=== PATIENT | female | born 1975 | race Caucasian/White ===

== ENCOUNTER 2019-11-27 16:15 | Emergency (ER) | payer OTHER, SELFPAY ==
[2019-11-27 16:46] VITALS: BP 152/90; PULSE 73; RESP 20; TEMP 37; O2SAT 97
--- NOTE | 2019-11-27 17:24 | ED.DENTAL ---
HPI - Dental/Oral General Chief complaint: Dental/Oral Stated complaint: Facial Swelling Time Seen by Provider: 11/27/19 17:19 Source: patient and RN notes reviewed Mode of arrival: ambulatory Limitations: no limitations History of Present Illness HPI Narrative: Patient presents today complaining of swelling to her left cheek x3 days, and swelling and pain to her left anterior upper gumline X5 days.She has had all the teeth in the upper arch pulled in 2017. [facility] and is on their wait list currently. No recent antibiotic use. She currently rates her pain 10/10. Denies any shortness of breath or difficulty swallowing. She has been taking ibuprofen at home for symptoms. Related Data Home Medications Medication Instructions Recorded Confirmed buspirone 15 mg PO BID 11/27/19 11/27/19 cholecalciferol (vitamin D3) 4,000 unit PO DAILY 11/27/19 11/27/19 [Vitamin D3] cyclobenzaprine 10 mg PO HS PRN 11/27/19 11/27/19 diclofenac sodium 75 mg PO BID PRN 11/27/19 11/27/19 pregabalin [Lyrica] 200 mg PO BID 11/27/19 11/27/19 triamterene-hydrochlorothiazid 1 cap PO DAILY 11/27/19 11/27/19 Allergies Allergy/AdvReac Type Severity Reaction Status Date / Time No Known Allergies Allergy Verified 11/27/19 17:00 Review of Systems Review of Systems: Narrative: CONSTITUTIONAL: Denies body aches, fever, chills, or sweats. EYES: Denies visual changes, redness, or discharge. ENT: Denies rhinorrhea, congestion, sore throat, or otalgia.+Gum swelling and pain, Facial swelling CARDIOVASCULAR: Denies chest pain, palpitations, or edema. RESPIRATORY: Denies cough or dyspnea. GASTROINTESTINAL: Denies abdominal pain, nausea, vomiting, or diarrhea. GENITOURINARY: Denies dysuria or hematuria. SKIN: Denies rash, itching, or wounds. MUSCULOSKELETAL: Denies back pain, joint pain, or myalgia. NEUROLOGIC: Denies headache, numbness, tingling, or weakness. PSYCH: Denies depression or anxiety. PMFSH Comments At time of signature, I have reviewed and agree with nursing past medical, surgical, social and family history unless otherwise noted. Please see nursing chart for further information. There is no relevant family history pertinent to the presenting complaint Exam Narrative: Exam Narrative: GENERAL: Well-appearing, well-nourished, and in no acute distress. HEAD: Normocephalic, atraumatic. EYES: EOMI. No redness or drainage. Conjunctivae normal. ENT: Mucous membranes pink and moist. Nares clear. No rhinorrhea. Throat normal. Uvula midline.Mild swelling to the left cheek, just lateral to the nose with mild erythema. 1 cm round blood-filled blister to the left upper gumline with swelling to the gumline as well. NECK: Normal AROM. Supple. No lymphadenopathy. CHEST: No respiratory distress. Clear to auscultation. HEART: Regular rate and rhythm. No murmur appreciated. Normal peripheral pulses. EXTREMITIES: Normal range of motion. No edema. SKIN: Warm, dry, no rash. NEURO: No focal deficits. Alert and oriented x3. Gait steady. PSYCH: Normal affect. No signs of depression or anxiety. Course Vital Signs Vital signs: Vital Signs Temperature 98.6 F 11/27/19 16:46 Pulse Rate 73 11/27/19 16:46 Respiratory Rate 11/27/19 16:46 Blood Pressure 152/90 H 11/27/19 16:46 Pulse Oximetry 97 11/27/19 16:46 Temperature 98.6 F 11/27/19 16:46 Pulse Rate 73 11/27/19 16:46 Respiratory Rate 20 11/27/19 16:46 Blood Pressure 152/90 H 11/27/19 16:46 Pulse Oximetry 97 11/27/19 16:46 Reviewed. Pt has been instructed to follow up with her PCP regarding her elevated blood pressure today. MDM - Dental/Oral Differential Diagnosis Differential diagnosis: Likely gingival abscess and dental abscess Critical Care Time Critical Care Time Critical Care Time: No Discharge Plan Discharge Clinical Impression: Abscess of upper gingiva Patient Disposition: Home, Self-Care Condition: Stable Instructio
== END 2019-11-27 17:30 | disposition home or self-care (01) ==
PROVIDERS: Emergency Provider Nurse Practitioner
DX: K05.319 Chronic periodontitis, localized, unspecified severity (principal); F41.9 Anxiety disorder, unspecified; F32.9 Major depressive disorder, single episode, unspecified
CPT/HCPCS: 99213; G0463

== ENCOUNTER 2023-09-06 13:44 | Emergency (ER) | payer MEDICAID, SELFPAY ==
[2023-09-06 13:50] VITALS: BP 185/90; PULSE 66; RESP 18; TEMP 36.3; O2SAT 98
--- NOTE | 2023-09-06 13:56 | ED.GENADULT ---
HPI - General Adult General Chief complaint: Dental/Oral Stated complaint: abcess tooth Source: patient, RN notes reviewed and old records reviewed Mode of arrival: ambulatory Limitations: no limitations History of Present Illness HPI narrative: 48-year-old female presents to [facility] with complaint of facial swelling, with dental/ mouth pain this started 3 days ago. Patient states her nose has dental issues in that area, patient states has dental appointment in 1 month MD complaint: dental swelling Onset (ago): day(s) ( 3) Related Data Home Medications Medication Instructions Recorded Confirmed buspirone 30 mg tablet 30 mg PO BID 09/06/23 09/06/23 fluoxetine 40 mg capsule 40 mg PO BID 09/06/23 09/06/23 ziprasidone HCl 60 mg capsule 60 mg PO BID 09/06/23 09/06/23 Allergies Allergy/AdvReac Type Severity Reaction Status Date / Time No Known Allergies Allergy Verified 09/06/23 14:00 Review of Systems Review of Systems: All systems reviewed & are unremarkable except as noted in HPI and below Constitutional: Constitutional: Reports no additional constitutional complaints Eyes: Eyes: Reports no additional eye complaints ENT: Reports as per HPI, Reports facial pain and Reports other ( right facial swelling, with ground pain, gum swelling) Cardiovascular: Cardiovascular: Reports no additional cardiovascular complaints Respiratory: Respiratory: Reports no additional respiratory complaints Neurologic: Reports system reviewed and no additional complaints, except as documented PMFSH Comments At the time of my signature, I reviewed and agree with the nursing past medical, surgical, social, and family history. There is no relevant family history pertinent to the patient complaint. Exam Const: General: cooperative, healthy appearing, no acute distress and well nourished Nutritional Appearance: well nourished Orientation/consciousness: patient oriented x3 Limitations: no limitations HENMT: Head: normal to inspection and normocephalic Ears: external ears normal, TM's normal bilaterally, mastoids normal and Abnormal EAC present Face/Nose/Sinus: normal facial exam Face and sinus: normal facial exam Face images: 1. swelling Mouth: Yes Normal oral and palatal mucosa present, Yes oropharynx normal and Yes moist mucous membranes Teeth and gingiva: abnormal tooth and associated gingiva, caries, dentures and poor dentition Teeth image: 1. patient with broken tooth noted,, redness and swelling Throat: posterior oropharynx normal, tonsils normal, uvula midline and no uvular edema Eyes: General: appearance normal, both eyes and all related structures Sclera: sclerae normal Pupils: Equal, round and reactive pupils present Resp: Effort & Inspection: normal respiratory effort, able to speak in complete sentences, no audible wheezes, no cough, no respiratory distress and no retractions Auscultation: clear to auscultation bilaterally, no crackles, no rales, no rhonchi and no wheezes Cardio: Rate: regular rate Rhythm: regular rhythm Skin: General skin exam: normal color and no rashes or lesions noted Neuro: General: patient oriented x3 Cranial nerves: Yes Equal, round and reactive pupils present Psych: Appearance: grossly normal Course Course Emergency Course: Some parts of this dictation were generated by voice recognition software and may contain typographical and/or grammatical inaccuracies. Level of Care: Express Care Visit Vital Signs Vital signs: Reviewed Medical Decision Making MDM Narrative Medical decision making narrative: Patient with missing teeth, patient with noted facial and gum swelling. Patient cannot get into a dentist until next month. Will treat patient for dental abscess /injured vital abscess and instructed on following up with a dentist. patient resting without signs or symptoms of acute distress, nontoxic appearing. Patient appropriate for discharge home and outpatie
[2023-09-06 14:00] VITALS: BP 148/88
[2023-09-06 14:01] VITALS: BP 185/90; PULSE 66; RESP 18; TEMP 36.3; O2SAT 98
== END 2023-09-06 14:10 | disposition home or self-care (01) ==
PROVIDERS: Emergency Provider Registered Nurse; PCP Family Medicine
DX: K04.7 Periapical abscess without sinus (principal); F41.9 Anxiety disorder, unspecified; F32.A Depression, unspecified
CPT/HCPCS: 99203; G0463